=== PATIENT | male | born 1965 ===

== ENCOUNTER 2025-08-08 16:04 | Emergency (ER) | payer BC, OTHER ==
[2025-08-08] MEDS: Take Home: Ciprofloxacin HCl 500 MG, 6 Tab Pack PO ONE (17:23)
[2025-08-08] MEDS: Take Home: Amoxicillin/Clavulanate K 875-125 MG Tab, 6 Tab Pack PO ONE (17:23)
== END 2025-08-08 17:30 | disposition home or self-care (01) ==
LOC: LL.ED 16:04
DX: E11.628 Type 2 diabetes mellitus with other skin complications (principal); E78.00 Pure hypercholesterolemia, unspecified; I10 Essential (primary) hypertension; E11.40 Type 2 diabetes mellitus with diabetic neuropathy, unspecified; Z79.84 Long term (current) use of oral hypoglycemic drugs; Z79.899 Other long term (current) drug therapy
CPT/HCPCS: 87070; 87205; 99283; 99284; A9270; 87075